=== PATIENT | male | born 1965 | race Caucasian/White ===

== ENCOUNTER 2016-06-03 19:41 | Emergency (ER) | payer MEDICARE, OTHER ==
[2016-06-03 22:55] LABS: BASO # 0.1 10_X3_uL (0.0-0.1); BASO % 0.8 % (0.2-1.2); EOS # 0.4 10_X3_uL (0.0-0.5); EOS % 4.6 % (0.8-7.0); GRAN # 4.8 10_X3_uL (1.8-5.4); GRAN % 61.1 % (34.0-67.9); HEMATOCRIT 40.3 % (40-51); HEMOGLOBIN 13.7 g/dL (13.7-17.5); LYMPH % 26.2 % (21.8-53.1); MEAN CORPUSCULAR HEMOGLOBIN 30.7 pg (27.0-33.0); MEAN CORPUSCULAR VOLUME 90.4 fL (79-92); MONO # 0.6 10_X3_uL (0.3-0.8); MONO % 7.3 % (5.3-12.2); PLATELET COUNT 284 x10_3/uL (163-337); RED BLOOD COUNT 4.46 x10_6/uL (4.6-6.1); RED CELL DISTRIBUTION WIDTH 13.8 % (11.6-14.4); WHITE BLOOD COUNT 7.8 x10_3/uL (4.2-9.1)
[2016-06-03 23:06] LABS: ALBUMIN 4.3 gm/dL (3.4-5.0); ALKALINE PHOSPHATASE 76 U/L (50-136); ALT/SGPT 18 U/L (7.53-40.17); AST/SGOT 26 U/L (6.66-35.34); BILIRUBIN,TOTAL 0.32 mg/dL (0.0-1.0); BLOOD UREA NITROGEN 12 mg/dL (7-18); CALCIUM 9.1 mg/dL (8.7-10.7); CARBON DIOXIDE 25 mmol/L (21-32); CREATININE 0.6 mg/dL (0.6-1.3); GLUCOSE,RANDOM 95 mg/dL (70-99); POTASSIUM 4.1 mmol/L (3.5-5.1); SODIUM 138 mmol/L (136-145); TOTAL PROTEIN 6.7 gm/dL (6.4-8.2)
== END 2016-06-04 00:33 | disposition home or self-care (01) ==
LOC: ER 19:41
PROVIDERS: Emergency Medicine
DX: S39.91XA Unspecified injury of abdomen, initial encounter (principal); W10.9XXA Fall (on) (from) unspecified stairs and steps, initial encounter; Y92.019 Unspecified place in single-family (private) house as the place of occurrence of the external cause; M54.5 Low back pain; G89.29 Other chronic pain; Z91.81 History of falling; I10 Essential (primary) hypertension; K21.9 Gastro-esophageal reflux disease without esophagitis; M10.9 Gout, unspecified; J44.9 Chronic obstructive pulmonary disease, unspecified; Z99.81 Dependence on supplemental oxygen; Z98.890 Other specified postprocedural states; Z98.84 Bariatric surgery status; Z88.8 Allergy status to other drugs, medicaments and biological substances; Z79.899 Other long term (current) drug therapy
CPT/HCPCS: 36415; 72100; 80053; 85025; 96374; 96376; 99070; 99284; 99284-25

== ENCOUNTER 2016-06-14 19:37 | Emergency (ER) | payer MEDICARE, OTHER ==
[2016-06-15 01:41] LABS: BASO # 0.1 10_X3_uL (0.0-0.1); EOS # 0.3 10_X3_uL (0.0-0.5); EOS % 3.9 % (0.8-7.0); GRAN # 4.1 10_X3_uL (1.8-5.4); GRAN % 58.2 % (34.0-67.9); HEMATOCRIT 41.5 % (40-51); HEMOGLOBIN 13.8 g/dL (13.7-17.5); LYMPH # 1.9 10_X3_uL (1.3-3.6); LYMPH % 27.8 % (21.8-53.1); MEAN CORPUSCULAR HEMOGLOBIN 30.3 pg (27.0-33.0); MEAN CORPUSCULAR HGB CONC 33.3 g/dL (32.0-36.0); MEAN CORPUSCULAR VOLUME 91.2 fL (79-92); MEAN PLATELET VOLUME 9.9 fl (7.5-11.5); MONO # 0.6 10_X3_uL (0.3-0.8); MONO % 9.1 % (5.3-12.2); PLATELET COUNT 327 x10_3/uL (163-337); RED BLOOD COUNT 4.55 x10_6/uL (4.6-6.1); RED CELL DISTRIBUTION WIDTH 13.7 % (11.6-14.4)
== END 2016-06-15 03:04 | disposition home or self-care (01) ==
LOC: ER 19:37
PROVIDERS: Emergency Medicine
DX: K56.60 Unspecified intestinal obstruction (principal); K43.9 Ventral hernia without obstruction or gangrene; R11.0 Nausea; G89.29 Other chronic pain; R10.9 Unspecified abdominal pain; J60 Coalworker's pneumoconiosis; Z98.84 Bariatric surgery status; F17.210 Nicotine dependence, cigarettes, uncomplicated; Z79.899 Other long term (current) drug therapy; Z79.891 Long term (current) use of opiate analgesic; Z88.8 Allergy status to other drugs, medicaments and biological substances
CPT/HCPCS: 36415; 85025; 96372; 99284-25

== ENCOUNTER 2016-07-02 21:25 | Emergency (ER) | payer MEDICARE, OTHER ==
[2016-07-02 22:09] LABS: BASO # 0.1 10_X3_uL (0.0-0.1); BASO % 0.8 % (0.2-1.2); EOS # 0.4 10_X3_uL (0.0-0.5); EOS % 6.6 % (0.8-7.0); GRAN # 3.4 10_X3_uL (1.8-5.4); GRAN % 54.6 % (34.0-67.9); LYMPH # 1.8 10_X3_uL (1.3-3.6); LYMPH % 29.3 % (21.8-53.1); MEAN CORPUSCULAR HEMOGLOBIN 31.4 pg (27.0-33.0); MEAN CORPUSCULAR HGB CONC 34.1 g/dL (32.0-36.0); MEAN CORPUSCULAR VOLUME 91.9 fL (79-92); MEAN PLATELET VOLUME 10.2 fl (7.5-11.5); MONO # 0.5 10_X3_uL (0.3-0.8); MONO % 8.7 % (5.3-12.2); PLATELET COUNT 280 x10_3/uL (163-337); RED BLOOD COUNT 4.46 x10_6/uL (4.6-6.1); RED CELL DISTRIBUTION WIDTH 13.4 % (11.6-14.4); WHITE BLOOD COUNT 6.2 x10_3/uL (4.2-9.1)
[2016-07-02 22:21] LABS: ALBUMIN 4.3 gm/dL (3.4-5.0); ALKALINE PHOSPHATASE 75 U/L (50-136); ALT/SGPT 26 U/L (7.53-40.17); AST/SGOT 26 U/L (6.66-35.34); BILIRUBIN,TOTAL 0.23 mg/dL (0.0-1.0); BLOOD UREA NITROGEN 13 mg/dL (7-18); CARBON DIOXIDE 24 mmol/L (21-32); CREATININE 0.8 mg/dL (0.6-1.3); GLUCOSE,RANDOM 93 mg/dL (70-99); LIPASE 33 U/L (6.75-60.75); SODIUM 138 mmol/L (136-145); TOTAL PROTEIN 6.7 gm/dL (6.4-8.2)
== END 2016-07-03 03:00 | disposition home or self-care (01) ==
LOC: ER 21:25
PROVIDERS: Internal Medicine
DX: K56.60 Unspecified intestinal obstruction (principal); R10.84 Generalized abdominal pain; G89.29 Other chronic pain; I10 Essential (primary) hypertension; E11.9 Type 2 diabetes mellitus without complications; J60 Coalworker's pneumoconiosis; Z98.84 Bariatric surgery status; Z88.8 Allergy status to other drugs, medicaments and biological substances; Z79.899 Other long term (current) drug therapy; Z79.891 Long term (current) use of opiate analgesic
CPT/HCPCS: 36415; 80053; 83605; 83690; 85025; 96374; 96375; 99070; 99284; 99284-25; J7040; Q9967

== ENCOUNTER 2016-08-25 18:32 | Emergency (ER) | payer MEDICARE, OTHER ==
[2016-08-25 19:30] LABS: BASO # 0.1 10_X3_uL (0.0-0.1); EOS # 0.9 10_X3_uL (0.0-0.5); EOS % 8.7 % (0.8-7.0); GRAN # 6.3 10_X3_uL (1.8-5.4); GRAN % 63.9 % (34.0-67.9); HEMATOCRIT 27.6 % (40-51); HEMOGLOBIN 8.9 g/dL (13.7-17.5); LYMPH # 1.7 10_X3_uL (1.3-3.6); LYMPH % 17.3 % (21.8-53.1); MEAN CORPUSCULAR HEMOGLOBIN 29.5 pg (27.0-33.0); MEAN CORPUSCULAR HGB CONC 32.2 g/dL (32.0-36.0); MEAN CORPUSCULAR VOLUME 91.4 fL (79-92); MEAN PLATELET VOLUME 9.2 fl (7.5-11.5); MONO # 0.9 10_X3_uL (0.3-0.8); MONO % 9.1 % (5.3-12.2); PLATELET COUNT 615 x10_3/uL (163-337); RED BLOOD COUNT 3.02 x10_6/uL (4.6-6.1); RED CELL DISTRIBUTION WIDTH 13.1 % (11.6-14.4); WHITE BLOOD COUNT 9.9 x10_3/uL (4.2-9.1)
[2016-08-25 19:45] LABS: ALBUMIN 3.4 gm/dL (3.4-5.0); ALKALINE PHOSPHATASE 59 U/L (50-136); ALT/SGPT 13 U/L (7.53-40.17); AST/SGOT 19 U/L (6.66-35.34); BLOOD UREA NITROGEN 10 mg/dL (7-18); CALCIUM 8.8 mg/dL (8.7-10.7); CARBON DIOXIDE 23 mmol/L (21-32); CREATININE 0.7 mg/dL (0.6-1.3); GLUCOSE,RANDOM 76 mg/dL (70-99); LIPASE 23 U/L (6.75-60.75); POTASSIUM 4.1 mmol/L (3.5-5.1); SODIUM 138 mmol/L (136-145)
[2016-08-25 19:49] LABS: BILIRUBIN,TOTAL < 0.15 mg/dL (0.0-1.0)
[2016-08-25 20:59] LABS: URINE BILIRUBIN NEGATIVE (NEGATIVE); URINE BLOOD NEGATIVE (NEGATIVE); URINE GLUCOSE (UA) NORMAL (NORMAL); URINE KETONE NEGATIVE (NEGATIVE); URINE LEUKOCYTE ESTERASE NEGATIVE (NEGATIVE); URINE NITRATE NEGATIVE (NEGATIVE); URINE PROTEIN TRACE (NEGATIVE); UROBILINOGEN NORMAL mg/dL (<1.0)
[2016-08-25 21:08] LABS: URINE RBC 0-5 /[HPF] (0-2); URINE SPERM PRESENT; URINE WBC 0-5 /[HPF] (0-3)
== END 2016-08-25 23:38 | disposition home or self-care (01) ==
LOC: ER 18:32
PROVIDERS: Internal Medicine
DX: L03.311 Cellulitis of abdominal wall (principal); K91.89 Other postprocedural complications and disorders of digestive system; Z98.890 Other specified postprocedural states; I10 Essential (primary) hypertension; J44.9 Chronic obstructive pulmonary disease, unspecified; Z98.84 Bariatric surgery status; Z90.49 Acquired absence of other specified parts of digestive tract; Z88.8 Allergy status to other drugs, medicaments and biological substances; Z79.82 Long term (current) use of aspirin; Z79.899 Other long term (current) drug therapy
CPT/HCPCS: 36415; 80053; 81001; 83605; 83690; 85025; 87040; 87070; 87186; 96365; 96367; 96375; 99070; 99284; 99284-25; J1170; J3370; J7050